=== PATIENT | male | born 2000 | race Caucasian/White ===

== ENCOUNTER 2019-10-27 13:12 | Emergency (ER) | payer BC ==
[~2019-10-27] VITALS: Ht 177.8 cm; Wt 74.4 kg
[2019-10-27 13:26] VITALS: BP 144/82
--- NOTE | 2019-10-27 13:30 | NUR ---
TRIAGE COMPLETE. VSS. RETURNED TO LOBBY AWAITNG BED IN ED.
--- NOTE | 2019-10-27 13:52 | NUR ---
PT TAKEN TO ER BED 11
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
[2019-10-27] MEDS ORDERED: HYDROcodone/APAP 5/325 MG 1 TAB TAB PO ONE (14:30)
--- NOTE | 2019-10-27 15:12 | NUR ---
Patient discharged with v/s stable. Written and verbal after care instructions given and explained. Patient alert, oriented and verbalized understanding of instructions. Ambulatory with steady gait. All questions addressed prior to discharge. ID band removed. Patient advised to follow up with PMD. Rx of TYLENOL EXTRA STRENGTH AND IBUPROFEN given. Patient educated on indication of medication including possible reaction and side effects. Opportunity to ask questions provided and answered.
[2019-10-27 15:16] VITALS: BP 122/70
== END 2019-10-27 15:12 | disposition home or self-care (01) ==
LOC: MED 13:12
DX: S06.0X1A Concussion with loss of consciousness of 30 minutes or less, initial encounter (principal); F12.90 Cannabis use, unspecified, uncomplicated; V19.9XXA Pedal cyclist (driver) (passenger) injured in unspecified traffic accident, initial encounter; Y93.55 Activity, bike riding; Y92.89 Other specified places as the place of occurrence of the external cause; Y99.8 Other external cause status
CPT/HCPCS: 99282

== ENCOUNTER 2019-10-29 20:29 | Emergency (ER) | payer OTHER, BC ==
[~2019-10-29] VITALS: Ht 175.3 cm; Wt 73.9 kg
--- NOTE | 2019-10-29 20:39 | NUR ---
PT TAKEN TO BED 3
[2019-10-29 20:44] VITALS: BP 140/74
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
[2019-10-29] MEDS ORDERED: KETOROLAC 60 MG/2 ML VIAL IM ONE (21:15)
--- NOTE | 2019-10-29 21:24 | NUR ---
PT REFUSED MEDICATION, ERMD MADE AWARE
--- NOTE | 2019-10-29 21:26 | NUR ---
RECEIVED REPORT FROM SHEYLA FREEMAN. TRANSFER OF CARE AT THIS TIME
--- NOTE | 2019-10-29 21:40 | NUR ---
Dr. Garcia examining patient.
[2019-10-29] MEDS ORDERED: IBUPROFEN 800 MG TAB PO ONE (21:45)
--- NOTE | 2019-10-29 21:49 | NUR ---
PT TO CT VIA WHEELCHAIR
--- NOTE | 2019-10-29 22:27 | NUR ---
PT LAYIN IN BED POSITIONED FOR COMFORT, RR EVEN AND UNLABORED. GIRLFRIEND AT BEDSIDE. VSS. WILL CONTINUE TO MONITOR
--- NOTE | 2019-10-29 23:08 | NUR ---
LAB AT BEDSIDE
[2019-10-29 23:21] LABS: HEMOGLOBIN 14.8 g/dL (12.0-18.0)
--- NOTE | 2019-10-29 23:23 | NUR ---
SITTING UPRIGHT, CALM AND PLEASANT. RR EVEN AND UNLABORED. PTS GIRLFRIEND REMAINS AT BEDSIDE. VSS. WILL CONTINUE TO MONITOR
[2019-10-29 23:24] LABS: BASOPHILS % (AUTO) 0.6 % (0.0-2.0); EOSINOPHILS # (AUTO) 0.2 K/uL (0-0.4); EOSINOPHILS % (AUTO) 4.4 % (0.0-4.0); HEMATOCRIT 44.4 % (36-52); LYMPHOCYTES # (AUTO) 2.7 K/uL (2.0-11.5); LYMPHOCYTES % (AUTO) 48.3 % (20.5-51.1); MEAN CORPUSCULAR HEMOGLOBIN 31 pg (27-31); MEAN CORPUSCULAR HGB CONC 33 g/dL (33-37); MEAN CORPUSCULAR VOLUME 92.6 fL (80-94); MONOCYTES # (AUTO) 0.8 K/uL (0.8-1.0); MONOCYTES % (AUTO) 14.4 % (1.7-9.3); NEUTROPHILS # (AUTO) 1.8 K/uL (1.8-7.7); NEUTROPHILS % (AUTO) 32.3 % (42.2-75.2); PLATELET COUNT (AUTO) 171 K/uL (140-450); RED BLOOD CELL COUNT(AUTO) 4.79 MIL/uL (4.20-6.10); RED CELL DISTRIBUTION WIDTH 13.7 % (11.6-13.7); WHITE BLOOD COUNT (AUTO) 5.6 K/uL (4.8-10.8)
[2019-10-29 23:29] LABS: ANION GAP 13.1 (8-16); CARBON DIOXIDE 29.6 mmol/L (21-32); CREATININE 0.8 mg/dL (0.6-1.3); POTASSIUM 4.7 mmol/L (3.5-5.1)
--- NOTE | 2019-10-29 23:41 | NUR ---
REPORT CALLED TO [facility]. SPOKE TO SHEYLA CAMPA. MANJINDER FOR CAD TECHNICIAN APPROX 30 MIN.
--- NOTE | 2019-10-30 | NUR ---
[facility] TRANSPORT AT BEDSIDE
[2019-10-30 00:04] VITALS: BP 137/77
--- NOTE | 2019-10-30 00:05 | NUR ---
Patient to be transferred to [facility]. Is being transferred due to HIGHER LEVEL OF CARE. Receiving facility has accepting physician and available space. ER physician has signed transfer form. Patient or responsible republican has agreed to transfer and signed form. Patient belongings inventoried and will be sent with patient. Copy of nursing notes, lab reports, EKG, Physicians Orders and X-rays to be sent with patient. Report called to SHEYLA CAMPA at receiving facility. [facility] ambulance service has been called for transfer. ETA is 15.
== END 2019-10-30 00:05 | disposition short-term general hospital (02) ==
LOC: MED 20:29
DX: S02.11GA Other fracture of occiput, right side, initial encounter for closed fracture (principal); F17.200 Nicotine dependence, unspecified, uncomplicated; V19.9XXA Pedal cyclist (driver) (passenger) injured in unspecified traffic accident, initial encounter; Y93.89 Activity, other specified; Y92.89 Other specified places as the place of occurrence of the external cause; Y99.8 Other external cause status
CPT/HCPCS: 36415; 70450; 80048; 85025; 99284; 99285; J1885